=== PATIENT | male | born 1990 | race Caucasian/White ===

== ENCOUNTER 2017-02-24 18:04 | Inpatient (IN) | payer MEDICAID, OTHER ==
--- NOTE | 2017-02-24 18:39 | ED ---
General Adult HPI - General Source: patient, family, RN notes reviewed Mode of arrival: ambulatory Limitations: no limitations <Omar Cordova - Last Filed: 02/24/17 19:29> <Chun Troncoso - Last Filed: 02/24/17 23:54> - General Chief complaint: Psychiatric Symptoms Stated complaint: Mental health Time Seen by Provider: 02/24/17 18:18 - History of Present Illness Initial comments: Chief complaint and history of present illness is a 26-year-old male here with family. The patient has a history of depression and bipolar disorder. He states approximately 6 months ago he stopped taking his Xanax and Effexor. He weaned himself off them. He states he did not like the way it made him feel. But since then has been having increasing and more frequent episodes of depression. Today he has some suicidal thoughts without a specific plan. Denies wanting to hurt himself. Patient has appointment to see a counselor in 2 days (Omar Cordova) - Related Data Allergies Allergy/AdvReac Type Severity Reaction Status Date / Time No Known Allergies Allergy Verified 02/24/17 20:17 Review of Systems ROS Other: All systems not noted in ROS Statement are negative. <Omar Cordova - Last Filed: 02/24/17 19:29> ROS Other: All systems not noted in ROS Statement are negative. <Chun Troncoso - Last Filed: 02/24/17 23:54> ROS Statement: Those systems with pertinent positive or pertinent negative responses have been documented in the HPI. Review of systems no complaint of headache no chest pain or shortness of breath no GI/ problems. Psychologically the patient reports his depression. Comes much worse when he gets overwhelmed with problems of daily life. He has had suicidal thoughts did not mention specifically the plan. All systems reviewed Past medical problems PTSD anxiety bipolar disorder for the past 8 years. Surgeries cholecystectomy. Family history bipolar disorder. As well as cancers including breast and brain. Patient denies ALLERGIES nonsmoker drinks alcohol socially. Denies illegal drug use (Omar Cordova) Past Medical History Past Medical History: GERD/Reflux Additional Past Medical History / Comment(s): low potassium History of Any Multi-Drug Resistant Organisms: None Reported Past Surgical History: Cholecystectomy Past Psychological History: Anxiety, Bipolar, Depression Smoking Status: Never smoker Past Alcohol Use History: Rare Past Drug Use History: None Reported <Omar Cordova - Last Filed: 02/24/17 19:29> General Exam Limitations: no limitations <Omar Cordova - Last Filed: 02/24/17 19:29> <Chun Troncoso - Last Filed: 02/24/17 23:54> - General Exam Comments Initial Comments: General: The patient is awake and alert, states she has episodes of depression with a history of bipolar disorder. Occasionally thinks suicidal thoughts but has no specific plan. Here with family because they feel he is becoming more more upset and depressed as a month's long arm. Vital signs show temp 98.3 pulse 81 respiratory rate 18 pulse ox 96% room air blood pressure 183/73. Eye: Pupils are equal, round and reactive to light, extra-ocular movements are intact ; there is normal conjunctiva bilaterally. No signs of icterus. Ears, nose, mouth and throat: There are moist mucous membranes and no oral lesions. Neck: The neck is supple, there is no tenderness . Cardiovascular: There is a regular rate and rhythm. No murmur, rub or gallop is appreciated. Respiratory: Lungs are clear to auscultation, respirations are non-labored, breath sounds are equal. No wheezes, stridor, rales, or rhonchi. Gastrointestinal: Soft, non-distended, non-tender abdomen without masses or organomegaly noted. There is no rebound or guarding present. No CVA tenderness. Bowel sounds are unremarkable. Back: There is no tenderness to palpation in the midline. There is no obvious deformity. No rashes noted. Musculoskeletal: Normal ROM, no tenderness, There is no pedal edema. There is no calf tenderness or swelling. Sensation intact. Pulses equal bilaterally 2+. Neurological: No neuro deficits. No complaint of any problems with dizziness or weakness. Skin: Skin is warm and dry and no rashes or lesions are noted. Psychiatric: Past history of bipolar disorder anxiety and PTSD. States he's been having more frequent episodes of depression, they are occurring when stresses increase around him. (Omar Cordova) Medical Decision Making - Lab Data Result diagrams: 02/24/17 18:40 <Omar Cordova - Last Filed: 02/24/17 19:29> - Lab Data Result diagrams: 02/24/17 23:15 <Chun Troncoso - Last Filed: 02/24/17 23:54> - Medical Decision Making Medical decision making the patient's potassium is 3.04 which she will receive K -Dur 20 which he takes normally in the abdomen did not take today. BUN 15 creatinine 0.7 with a GFR greater than 60. (Omar Cordova) This patient is seen and evaluated by [facility] and will be accepted upstairs. The potassium was repeated and is 3.7. (Chun Troncoso) - Lab Data Lab Results 02/24/17 02/24/17 02/24/17 Range/Units 18:40 18:40 23:15 Sodium 140 (137-145) mmol/L Potassium 3.0 L* 3.7 (3.5-5.1) mmol/L Chloride 99 (98-107) mmol/L Carbon Dioxide 29 (22-30) mmol/L Anion Gap 12 mmol/L BUN 15 (9-20) mg/dL Creatinine 0.71 (0.66-1.25) mg/dL Est GFR (MDRD) Af Amer >60 (>60 ml/min/1.73 sqM) Est GFR (MDRD) Non-Af >60 (>60 ml/min/1.73 sqM) Glucose 98 (74-99) mg/dL Calcium 10.1 (8.4-10.2) mg/dL Salicylates <1.0 mg/dL Urine Opiates Screen Not Detected (NotDetected) Ur Oxycodone Screen Not Detected (NotDetected) Urine Methadone Screen Not Detected (NotDetected) Ur Propoxyphene Screen Not Detected (NotDetected) Acetaminophen <10.0 ug/mL Ur Barbiturates Screen Not Detected (NotDetected) U Tricyclic Antidepress Not Detected (NotDetected) Ur Phencyclidine Scrn Not Detected (NotDetected) Ur Amphetamines Screen Not Detected (NotDetected) U Methamphetamines Scrn Not Detected (NotDetected) U Benzodiazepines Scrn Not Detected (NotDetected) Urine Cocaine Screen Not Detected (NotDetected) U Marijuana (THC) Screen Not Detected (NotDetected) Disposition <Omar Cordova - Last Filed: 02/24/17 19:29> <Chun Troncoso - Last Filed: 02/24/17 23:54> Clinical Impression: Mood disorder Disposition: ADMITTED IP TO THIS [facility] Condition: Fair Referrals: None,Stated [REFERRING] - 1-2 days
[2017-02-24 19:07] LABS: Acetaminophen <10.0 ug/mL; Anion Gap 12 mmol/L; Blood Urea Nitrogen 15 mg/dL (9-20); Calcium 10.1 mg/dL (8.4-10.2); Carbon Dioxide 29 mmol/L (22-30); Chloride 99 mmol/L (98-107); Glucose 98 mg/dL (74-99); Non-African American GFR(MDRD) >60 (>60 ml/min/1.73 sqM); Salicylate <1.0 mg/dL; Sodium 140 mmol/L (137-145)
[2017-02-24] MEDS ORDERED: POTASSIUM CHLORIDE ER 20 MEQ TAB.ER PO STA (19:25)
[2017-02-24] MEDS ORDERED: POTASSIUM BICARB-CITRIC ACID 25 MEQ TABLET.EFF PO STA (22:03)
[2017-02-25 01:00] VITALS: TEMP 97.8; BMI 23.2
[2017-02-25] MEDS ORDERED: ACETAMINOPHEN TAB 325 MG TAB PO PRN (05:06)
[2017-02-25] MEDS ORDERED: MAGNESIUM HYDROXIDE 2,400 MG/10 ML CUP PO PRN (05:06)
[2017-02-25] MEDS ORDERED: MAG HYDROX/AL HYDROX/SIMETH 30 ML CUP PO PRN (05:06)
[2017-02-25] MEDS ORDERED: LORazepam 1 MG TAB PO PRN (05:09)
[2017-02-25 09:28] LABS: ALT 33 U/L (21-72); AST 27 U/L (17-59); Alkaline Phosphatase 57 U/L (38-126); Anion Gap 14 mmol/L; Blood Urea Nitrogen 14 mg/dL (9-20); Calcium 10.1 mg/dL (8.4-10.2); Carbon Dioxide 29 mmol/L (22-30); Chloride 97 mmol/L (98-107); Glucose 149 mg/dL (74-99); Non-African American GFR(MDRD) >60 (>60 ml/min/1.73 sqM); Potassium 3.3 mmol/L (3.5-5.1); Sodium 140 mmol/L (137-145); Total Bilirubin 1.9 mg/dL (0.2-1.3); Total Protein 8.6 g/dL (6.3-8.2)
[2017-02-25] MEDS: PANTOPRAZOLE 40 MG TABLET PO SCH (10:11)
[2017-02-25] MEDS: MULTIVITAMINS, THERA 1 EACH TAB PO SCH (10:38)
[2017-02-25] MEDS: POTASSIUM CHLORIDE ER 20 MEQ TAB.ER PO SCH ×2 (10:39→21:04)
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
[2017-02-25] MEDS ORDERED: PRAZOSIN 1 MG CAP PO SCH (21:00)
[2017-02-26 06:22] VITALS: BP 125/70; PULSE 113; RESP 16
[2017-02-26] MEDS: PANTOPRAZOLE 40 MG TABLET PO SCH (07:55)
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
[2017-02-26] MEDS: MULTIVITAMINS, THERA 1 EACH TAB PO SCH (09:20)
[2017-02-26] MEDS: POTASSIUM CHLORIDE ER 20 MEQ TAB.ER PO SCH (09:20)
--- NOTE | 2017-02-27 08:40 | P.CONS ---
History of Present Illness - Reason for Consult Consult date: 02/25/17 Medical management - History of Present Illness This is a 26-year-old male who follows with a primary care in [place]. He has a past medical history of gastroesophageal reflux disease, low potassium, anxiety and depression. Patient states that he has had hopelessness but not truly suicidal. He was brought into the hospital by his partner and sister. He does follow with an outpatient application counselor. Patient took himself off Effexor, Zoloft and Xanax. Patient was brought into [facility] and admitted to the mental health unit. His potassium initially was 3. Urine drug screen was negative, salicylate and acetaminophen level normal. TSH 2.290. Review of Systems All systems: negative Constitutional: Denies chills, Denies fever Eyes: denies blurred vision, denies pain Ears, nose, mouth and throat: Denies headache, Denies sore throat Cardiovascular: Denies chest pain, Denies shortness of breath Respiratory: Denies cough Gastrointestinal: Denies abdominal pain, Denies diarrhea, Denies nausea, Denies vomiting Musculoskeletal: Denies myalgias Integumentary: Denies pruritus, Denies rash Neurological: Denies numbness, Denies weakness Psychiatric: Reports depression, Reports hopelessness, Denies anxiety, Denies suicidal ideation Endocrine: Denies fatigue, Denies weight change Past Medical History Past Medical History: GERD/Reflux Additional Past Medical History / Comment(s): low potassium, Patient states that he has a history of kidney damage. History of Any Multi-Drug Resistant Organisms: None Reported Past Surgical History: Cholecystectomy Additional Past Surgical History / Comment(s): Pt is scheduled to have reconstructive surgery on his April 2017 at [facility]. Past Anesthesia/Blood Transfusion Reactions: No Reported Reaction Past Psychological History: Anxiety, Depression Smoking Status: Never smoker Past Alcohol Use History: Rare Additional Past Alcohol Use History / Comment(s): Patient states he is a lifelong nonsmoker. He denies any medical marijuana or street drug use. He is single and does not have any children. Past Drug Use History: None Reported Additional Drug Use History / Comment(s): Patient states that he use to drink alcohol heavily as a younger adult and now only drinks once every couple of months. - Past Family History Father History Unknown: Yes Additional Family Medical History / Comment(s): Father is in his 50s but he does not have contact with him and does not know his medical problems. Mother Additional Family Medical History / Comment(s): Mother is in her 50s with history of Anxiety, Cardiac problems per Patient. Sister(s) Additional Family Medical History / Comment(s): Patient has 3 sisters and one has Obesity, Bipolar and Depression. Medications and Allergies Home Medications Medication Instructions Recorded Confirmed Type Biotin 5 mg PO DAILY 02/24/17 02/24/17 History Cyanocobalamin (Vitamin B-12) 1,000 mcg PO DAILY 02/24/17 02/24/17 History [Vitamin B-12] Multivitamins, Thera [Multivitamin 1 tab PO DAILY 02/24/17 02/24/17 History (formulary)] Omeprazole [PriLOSEC] 20 mg PO AC-BRKFST 02/24/17 02/24/17 History Otc Immune Health Supplement 1 tab PO DAILY 02/24/17 02/24/17 History Potassium Chloride ER [K-Dur 20] 20 meq PO BID 02/24/17 02/24/17 History Allergies Allergy/AdvReac Type Severity Reaction Status Date / Time No Known Allergies Allergy Verified 02/25/17 01:12 Physical Exam Vitals: Vital Signs Temp Pulse Pulse Resp BP BP Pulse Ox 02/25/17 00:45 97.8 F 84 16 116/66 02/25/17 00:37 97.6 F 82 18 151/67 97 02/24/17 18:08 98.3 F 81 18 183/73 96 Intake and Output 02/24/17 02/25/17 02/25/17 22:59 06:59 14:59 Other: Weight 77.111 kg 75.5 kg Gen: This is a 26-year-old male. He is cooperative and appears to be in no acute distress. Patient makes good eye contact. Speech is clear. HEENT: Head is atraumatic, normocephalic. Pupils equal, round. Sclerae is anicteric. NECK: Supple. No JVD. No lymphadenopathy. No thyromegaly. LUNGS: Clear to auscultation. No wheezes or rhonchi. No intercostal retractions. HEART: Regular rate and rhythm. No murmur. ABDOMEN: Soft. Bowel sounds are present. No masses. No tenderness. EXTREMITIES: No pedal edema. No calf tenderness. NEUROLOGICAL: Patient is awake, alert and oriented x3. Cranial nerves 2 through 12 are grossly intact. Results CBC & Chem 7: 02/25/17 08:46 Labs: Abnormal Lab Results - Last 24 Hours (Table) 02/24/17 02/25/17 Range/Units 18:40 08:46 Potassium 3.0 L* 3.3 L (3.5-5.1) mmol/L Chloride 97 L (98-107) mmol/L Glucose 149 H (74-99) mg/dL Total Bilirubin 1.9 H (0.2-1.3) mg/dL Total Protein 8.6 H (6.3-8.2) g/dL Assessment and Plan Plan: 1. Depression recurrent. Patient admitted to the mental health unit. Continue current plan of care. 2. History of GERD. Continue omeprazole. 3. Hypokalemia. Continue potassium supplement. 4. No tobacco use. No need for nicotine patch. Impression and plan of care have been directed as dictated by the signing physician. Ольга Amaya nurse practitioner acting as scribe for signing physician.
== END 2017-02-26 12:07 | disposition home or self-care (01) | DRG 882 ==
LOC: EC 18:04 → 3MHU 02-25 00:23
PROVIDERS: ADMIT Psychiatry & Neurology Addiction Medicine; ATTEND Psychiatry & Neurology Addiction Medicine
DX: F43.10 Post-traumatic stress disorder, unspecified (principal); R45.851 Suicidal ideations; K21.9 Gastro-esophageal reflux disease without esophagitis; Z79.899 Other long term (current) drug therapy; Z62.810 Personal history of physical and sexual abuse in childhood
CPT/HCPCS: 36415; 80048; 80053; 80306; 82075; 83520; 84132; 84443; 99285